=== PATIENT | male | born 2000 | race Caucasian/White ===

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

== ENCOUNTER 2020-09-01 13:12 | Emergency (ER) | payer OTHER ==
[~2020-09-01] VITALS: Ht 177.8 cm; Wt 87.1 kg
[2020-09-01] MEDS ORDERED: TETRACAINE 0.5% OPHTH SOLN 4ML OD ONE (14:30)
[2020-09-01] MEDS ORDERED: FLUORESCEIN OPHTH 1 MG STRIP OD ONE (14:30)
[2020-09-01] MEDS ORDERED: CILO0.3S OP (15:19)
[2020-09-01 15:27] VITALS: BP 128/65
== END 2020-09-01 15:30 | disposition home or self-care (01) ==
LOC: M ED 13:12
DX: T15.11XA Foreign body in conjunctival sac, right eye, initial encounter (principal); X58.XXXA Exposure to other specified factors, initial encounter; Y92.89 Other specified places as the place of occurrence of the external cause